=== PATIENT | male | born 1990 | race Caucasian/White ===

== ENCOUNTER 2017-05-07 14:54 | Emergency (ER) | payer OTHER ==
[2017-05-07 15:01] VITALS: BP 115/77
--- NOTE | 2017-05-07 15:28 | ERNOTE ---
ENT HPI Presenting Symptoms: dental pain Source: patient Exam Limitations: no limitations - Immun/Allergies/Home Medications Immunizations: IMMUNIZATION HX Immunizations Up to Date Yes History of Influenza Vaccine No Hx Pneumococcal Vaccination No Allergies/Adverse Reactions: Allergies Allergy/AdvReac Type Severity Reaction Status Date / Time No Known Allergies Allergy Verified 05/07/17 15:01 Home Medications: HOME MEDICATIONS Amoxicillin Trihydrate [Amoxil] 500 mg PO TID #30 cap 05/07/17 [Last Taken Unknown] Ibuprofen [Motrin] 600 mg PO Q6H PRN #40 tab 05/07/17 [Last Taken Unknown] - History of Present Illness Narrative: Patient has had dental problems in his right upper jaw on and off for four months since a filling fell out. Over the last four days pain and swelling has gotten worse. He has not tried any pain meds yet Review of Systems - Review of Systems Constitutional: Absent: recent illness, fever ENT: Absent: nose congestion, sore throat Respiratory: Absent: shortness of breath, cough Cardiology: Absent: chest pain Gastrointestinal/Abdominal: Absent: nausea, vomiting, abdominal pain Genitourinary: Present: no symptoms reported Skin: Absent: rash Neurological: Absent: headache - Patient's Past Medical History Patient History - Medical: No pertinent hx Patient History - Cardiac/Respiratory: No pertinent hx Patient History - Cancer: No Hx of Cancer Patient History - Surgical Procedures: No surgical history Patient History - Other: None - Family History Grandmother-Maternal Family History - Medical: No pertinent hx Family History - Cardiac/Respiratory: No pertinent hx - Social History Living Situations: home Abuse History: No History of abuse Psych History: No pertinent hx Alcohol Use: occasionally Drug Use: none - Immunizations Immunizations Up to Date: Yes Hx Pneumococcal Vaccination: No History of Influenza Vaccine: No Physical Exam - Physical Exam General Appearance: Present: wd/wn, alert, no apparent distress Eye Exam: Normal inspection: bilateral, PERRL: bilateral Ears, Nose, Throat: Present: normal pharynx, other - right upper jaw decayed tooth with missing filling, gums tender and swollen Neck: Present: lymphadenopathy (R). Absent: lymphadenopathy (L) Respiratory: Present: no respiratory distress, normal breath sounds, lungs clear Neurological Exam: Present: alert, oriented, normal mood/affect Skin Exam: Present: normal color, warm/dry ED Progress - Vital Signs Patient's Vital Signs:: I have reviewed the patient's vital signs. Vital Signs: Vital Signs 05/07/17 14:57 Temperature 36.6 C Pulse Rate 91 Respiratory 16 Rate Blood Pressure 115/77 O2 Sat by Pulse 98 Oximetry - Progress/Reassessment Chief Complaint: Dental Problem Departure Clinical Impression: Dental abscess - Departure Disposition: Home self-care Condition: Good Instructions: Dental Abscess, [id number] Additional Instructions: call the dental clinic for follow up Prescriptions: Amoxicillin Trihydrate [Amoxil] 500 mg PO TID #30 cap Ibuprofen [Motrin] 600 mg PO Q6H PRN #40 tab PRN Reason: Pain
[2017-05-07] MEDS ORDERED: IBUPROFEN 600 MG TABLET PO ONE (15:33)
[2017-05-07] MEDS ORDERED: IBUPROFEN 600 MG TABLET ONE (15:38)
--- OUTSIDE RECORDS SUMMARY | 2017-05-07 15:42 | XMS REPORT | Clinical Summary ---
:1990 Author Organization [facility] [place] [address] Care Team Providers Name Role Phone Unavailable Primary Care Provider Unavailable Source Comments This disclosure is being made pursuant to the [employer] program and maynot contain all information available regarding this patient.[facility] Allergies No Known Allergies Current Medications Be aware that medications may not be up to date as of this document. Alwaysverify current medications with the patient. No known medications Active Problems No known active problems Resolved Problems Problem Noted Date Resolved Date Hypotension 05/06/2015 05/06/2015 Alcohol intoxication (HCC) 05/06/2015 05/06/2015 Social History Tobacco Use Types Packs/Day Years Used Date Unknown If Ever Smoked Alcohol Use Drinks/Week oz/Week Comments Yes Sex Assigned at Date Recorded Not on file Last Filed Vital Signs Vital Sign Reading Time Taken Blood Pressure 100/81 05/06/2015 6:00 AM CDT Pulse 83 05/06/2015 6:00 AM CDT Temperature 35.9 C (96.6 F) 05/06/2015 4:00 AM CDT Respiratory Rate 19 05/06/2015 6:00 AM CDT Oxygen Saturation 100% 05/06/2015 6:00 AM CDT Inhaled Oxygen Concentration - - Weight 89.9 kg (198 lb 3.1 oz) 05/06/2015 1:05 AM CDT Height 177.8 cm (5' 10") 05/06/2015 1:05 AM CDT Body Mass Index 28.44 05/06/2015 1:05 AM CDT Plan of Treatment Health Maintenance Due Date Last Done Comments HPV Vaccine ([id number],M: 9-22) (1 of 3 - Male 3 Dose 2001 Series) Tetanus/Pertussis (1 - Tdap) 2009 Retired-INFLUENZA VACCINE 06/10/2016 Results Not on filefrom Last 3 Months Insurance Payer Benefit Plan / Subscriber ID Type Phone Address Group [facility] [phone] [phone] [id number] MEDICAID PENDING MEDICAID PENDING Medicaid [address] [place] [address] [phone] [id number] [place] [address]
== END 2017-05-07 15:42 | disposition home or self-care (01) ==
LOC: ER 14:54
DX: K04.7 Periapical abscess without sinus (principal)